=== PATIENT | male | born 1985 | race Caucasian/White ===

== ENCOUNTER 2024-03-14 10:27 | Emergency (ER) | payer OTHER ==
[2024-03-14] MEDS: Take Home: Doxycycline 100 MG Cap, 4 Cap Pack PO ONE (11:07)
[2024-03-14] MEDS: Take Home: predniSONE 20 MG, 2 Tab Pack PO ONE (11:14)
[2024-03-14] MEDS: Take Home: predniSONE 20 MG, 2 Tab Pack ONE (11:32)
== END 2024-03-14 11:30 | disposition home or self-care (01) ==
LOC: CC.ED 10:27
DX: J01.00 Acute maxillary sinusitis, unspecified (principal)
CPT/HCPCS: 99282; 99283; A9270; J7512